=== PATIENT | male | born 1970 | race Two or more races ===

== ENCOUNTER 2019-06-16 13:43 | Emergency (ER) | payer OTHER ==
[~2019-06-16] VITALS: Ht 170.2 cm; Wt 72.6 kg
[2019-06-16 17:07] VITALS: BP 151/87
[2019-06-16] MEDS ORDERED: LIDOCAINE 1% HCL (LOCAL ANESTH.) INJ 20ML MDV IJ ONE (17:30)
[2019-06-16] MEDS ORDERED: BACITRACIN TOP OINT 1 UD PKG TOP ONE (17:30)
[2019-06-16] MEDS ORDERED: TETANUS-DIPTH-ACEL PERTUSSIS 0.5ML SYRG IM ONE (18:00)
== END 2019-06-16 18:36 | disposition home or self-care (01) ==
LOC: ER 13:43
DX: S61.012A Laceration without foreign body of left thumb without damage to nail, initial encounter (principal); W45.8XXA Other foreign body or object entering through skin, initial encounter; Y93.89 Activity, other specified; Y92.69 Other specified industrial and construction area as the place of occurrence of the external cause; Y99.8 Other external cause status
CPT/HCPCS: 12001; 90471; 90715; 99283; J2001